=== PATIENT | male | born 1985 | race Caucasian/White ===

== ENCOUNTER 2024-01-30 20:11 | Emergency (ER) | payer OTHER, SELFPAY ==
[2024-01-30 20:12] VITALS: BP 128/87; PULSE 85; RESP 22; TEMP 36.6; O2SAT 98; BMI 23.5
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
--- NOTE | 2024-01-30 20:21 | ECG_ITS ---
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 Measurements Intervals [place] Rate: 79 P: 66 NC: 159 QRS: 48 QRSD: 94 T: 50 QT: 366 QTc: 421 Interpretive Statements SINUS RHYTHM POSSIBLE RIGHT VENTRICULAR CONDUCTION DELAY [RSR (QR) IN V1/V2] No previous ECG available for comparison Electronically Signed On 01-30-2024 23:58:24 CDT by Alan Bernard M.D. [id number]
[2024-01-30 20:26] LABS: Basophils # 0.1 10^3/uL (0.0-0.1); Basophils % 0.7 %; Hematocrit 44.8 % (37-53); Lymphocytes # 2.7 10^3/uL (0.8-4.8); Mean Corpuscular HGB Conc 36.4 g/dL (30-55); Mean Corpuscular Hemoglobin 33.6 pg (27-33); Mean Corpuscular Volume 92.4 fl (82-101); Mean Platelet Volume 9.3 fL (7.4-10.4); Monocytes # 1.3 10^3/uL (0.2-0.9); Monocytes % 7.6 %; Neutrophils # 12.58 10^3/uL (1.8-7.7); Neutrophils % 75.2 %; Nucleated Red Blood Cells % 0 %; Platelet Count 252 10^3/cmm (157-399); Red Blood Count 4.85 10^6/uL (3.85-5.65); Red Cell Distribution Width 11.6 % (12.1-15.1); White Blood Count 16.72 10^3/uL (3.29-11.43)
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
[2024-01-30 20:27] LABS: Add Urine Microscopic? NO; Charge for UA Resulting for Rev
[2024-01-30 20:29] LABS: Bilirubin Urine Neg (Negative); Blood Urine Neg (Negative); Glucose Urine UA Norm (Normal); Ketones Urine Negative (Negative); Leukocyte Esterase Urine Negative (Negative); Nitrate Urine Negative (Negative); Protein Urine Neg (Negative); Specific Gravity, Urine 1.005 (1.005-1.030); Urine Appearance Clear (CLEAR); Urine Color Yellow (Yellow); Urobilinogen Urine Norm (Negative); pH Urine 7 (5-7)
[2024-01-30 20:30] LABS: Glucose Point of Care 135 mg/dL (70-110)
[2024-01-30] MEDS: iohexol 350 mg/mL 500 mL Btl (per mL) IV (20:34)
[2024-01-30 20:37] LABS: Amphetamines Screen Urine Negative (Negative); Barbiturates Screen Urine Negative (Negative); Benzodiazepines Screen Urine Negative (Negative); Cocaine Screen Urine Negative (Negative); Opiate Screen Urine Negative (Negative); PCP Screen Urine Negative (Negative); THC Screen Urine Negative (Negative)
[2024-01-30 20:40] LABS: INR 0.98 (0.8-1.2)
[2024-01-30 20:47] LABS: Alanine Aminotransferase 78 U/L (0-41); Albumin Level 4.6 g/dL (3.5-5.2); Alcohol Level 73 mg/dL (0-10); Alkaline Phosphatase 93 U/L (40-130); Anion Gap 22.7 (5-19); Aspartate Amino Transferase 56 U/L (0-40); Blood Urea Nitrogen 10 mg/dL (6-20); Calcium 9.5 mg/dL (8.5-10.5); Carbon Dioxide 18 mmol/L (22-29); Chloride 98 mmol/L (98-107); Creatinine Clr Calc Pharmacy 136.6704; Globulin 2.6 g/dL (1.3-4.6); Glomerular Filtration Rate 126.9 mL/min (90-130); Glucose 120 mg/dL (65-115); Osmolality Calculated 282 mOsm/kg (285-295); Sodium 136 mmol/L (136-145); Total Bilirubin 0.7 mg/dL (0.15-1.2); Total Protein 7.2 g/dL (6.6-8.7)
[2024-01-30 20:50] LABS: Potassium 2.7 mmol/L (3.5-5.1)
[2024-01-30] MEDS: potassium chloride ER 20 mEq Tablet 40 MEQ PO (21:04)
[2024-01-30 22:08] VITALS: BP 128/87; PULSE 85; RESP 22; TEMP 36.6; O2SAT 98
== END 2024-01-30 22:21 | disposition home or self-care (01) ==
PROVIDERS: Emergency Provider Internal Medicine
DX: S22.32XA Fracture of one rib, left side, initial encounter for closed fracture (principal); S00.83XA Contusion of other part of head, initial encounter; S00.03XA Contusion of scalp, initial encounter; S10.93XA Contusion of unspecified part of neck, initial encounter; S30.1XXA Contusion of abdominal wall, initial encounter; S00.81XA Abrasion of other part of head, initial encounter; S00.412A Abrasion of left ear, initial encounter; S20.222A Contusion of left back wall of thorax, initial encounter; E87.6 Hypokalemia; D72.829 Elevated white blood cell count, unspecified; F10.129 Alcohol abuse with intoxication, unspecified; Y90.3 Blood alcohol level of 60-79 mg/100 ml; Y04.2XXA Assault by strike against or bumped into by another person, initial encounter
CPT/HCPCS: 36416; 51701; 70450; 70486; 71045; 71260; 72125; 74177; 80053; 80306; 80307; 81003; 82962; 85025; 85610; 93005; 99285; J0330; J2405; Q9967